=== PATIENT | female | born 1950 | race Two or more races ===

== ENCOUNTER 2018-06-22 05:31 | Inpatient (IN) | payer MEDICARE, MEDICAID ==
[2018-06-22] VITALS (40 sets, daily range): BP systolic 120–198; BP diastolic 57–132
[~2018-06-22] VITALS: Ht 162.6 cm; Wt 67.7 kg
[2018-06-22 08:03] LABS: Basophils # (auto) 0 uL; Basophils % (auto) 0.4 % (0.0-2.0); Eosinophils # (auto) 0.2 uL; Eosinophils % (auto) 1.6 % (0.0-7.0); Hematocrit 24.4 % (36.0-46.0); Lymphocytes # (auto) 1.3 uL; Lymphocytes % (auto) 12.2 % (10.0-50.0); Mean Corpuscular Hemoglobin 28.3 pg (28.0-32.0); Mean Corpuscular Hgb Conc. 32.7 g/dL (32.0-36.0); Mean Corpuscular Volume 86.7 fL (80.0-100.0); Monocytes # (auto) 0.6 uL; Monocytes % (auto) 5.9 % (0.0-12.0); Neutrophils # (auto) 8.2 uL; Neutrophils % (auto) 79.9 % (37.0-80.0); Nucleated Red Blood Cells % 0.1 %; Platelet Count (auto) 196 10^3/uL (140-450); Red Blood Cells 2.82 10^6/uL (4.0-5.20); Red Cell Distribution Width 19.6 % (11.8-14.3); White Blood Cell 10.2 10^3/uL (4.4-10.8)
[2018-06-22 08:22] LABS: Albumin 3.2 g/dL (3.4-5.0); BUN/Creatinine Ratio 8.6; Calcium 7.4 mg/dL (8.5-10.1); Magnesium 2.9 mg/dL (1.6-2.6)
[2018-06-22 08:23] LABS: INR 0.92 (0.9-1.15); Partial Thromboplastin Time 21.5 sec (23.78-33.04); Prothrombin Time 9.9 sec (9.27-12.13)
[2018-06-22 08:27] LABS: Bilirubin, Total 0.3 mg/dL (0.2-1.0); Total Protein 6.9 g/dL (6.4-8.2)
[2018-06-22 08:32] LABS: Potassium 7.2 mmol/L (3.5-5.1)
[2018-06-22] MEDS ORDERED: ALBUTEROL SULF 2.5 MG/0.5ML(0.5%) NEB SOLN NEB STA (08:35)
[2018-06-22] MEDS ORDERED: TEMAZEPAM 15 MG CAP PO PRN (08:45)
[2018-06-22] MEDS ORDERED: DEXTROSE (50%) 50ML SYRG IV ONE (08:45)
[2018-06-22] MEDS ORDERED: InsuLIN REG 1unit/0.01ml Soln (100units/ml) IV ONE (08:45)
[2018-06-22] MEDS ORDERED: SODIUM BICARBONATE 8.4% INJ 50ML SYRINGE IV ONE (08:45)
[2018-06-22] MEDS ORDERED: SODIUM POLYSTYRENE SULF 15 GM POWDER PR ONE (08:45)
[2018-06-22] MEDS ORDERED: CALCIUM GLUC 4.65meq/50ml D5AE 50 ML IV ONE (08:45)
[2018-06-22] MEDS ORDERED: LORazepam 0.5 MG TAB PO PRN (08:45)
[2018-06-22] MEDS ORDERED: PROMETHAZINE HCL 25 MG/ML 1ML IV PRN (08:45)
[2018-06-22] MEDS ORDERED: NITROGLYCERIN 0.4 MG SL TAB SL PRN (08:45)
[2018-06-22] MEDS ORDERED: HYDROcodone-ACET 5/325MG TAB PO PRN (08:45)
[2018-06-22] MEDS ORDERED: LACTULOSE 20Gm/30ML SOLN PO PRN (08:45)
[2018-06-22] MEDS ORDERED: MORPHINE SULFATE 4 MG/ML SYR/VIAL IV PRN ×2 (08:45)
[2018-06-22] MEDS: FUROSEMIDE 40 MG/4 ML VIAL IV SCH ×2 (09:00→18:00)
[2018-06-22] MEDS ORDERED: FUROSEMIDE 20 MG/2 ML VIAL IV ONE (09:00)
[2018-06-22] MEDS ORDERED: SODIUM CHL 0.9% 1000 ML BAG XX ONE (09:15)
[2018-06-22] MEDS ORDERED: EPOETIN ALFA 10,000 UNIT/1 ML VIAL IV ONE (09:15)
[2018-06-22] MEDS: PANTOPRAZOLE 40 MG TAB PO SCH (09:42)
[2018-06-22] MEDS ORDERED: ENOXAPARIN SOD 30 MG/0.3 ML SYRINGE SC SCH (10:00)
[2018-06-22] MEDS ORDERED: LORazepam 2MG/ML-1ML VIAL ONE (10:18)
[2018-06-22] MEDS ORDERED: LORazepam 2MG/ML-1ML VIAL IV ONE (10:30)
[2018-06-22] MEDS ORDERED: MIDAZOLAM DRIP 50 mg/50mL 50 ML IV ONE (10:41)
[2018-06-22] MEDS ORDERED: SUCCINYLCHOLINE CHLORIDE 20 MG/ML 10ML VIAL IV ONE (10:45)
[2018-06-22] MEDS ORDERED: ETOMIDATE (2MG/ML) 20ML VIAL IV ONE (10:45)
[2018-06-22] MEDS: MIDAZOLAM DRIP 50 mg/50mL 50 ML IV SCH ×4 (10:59→20:22)
[2018-06-22] MEDS ORDERED: PROPOFOL 100 ML IV ONE (11:13)
[2018-06-22] MEDS: PROPOFOL 100 ML IV SCH ×2 (11:37→15:07)
[2018-06-22] MEDS: LABETALOL HCL 5 MG/ML 4ML SYRINGE IV PRN ×3 (18:52→23:18)
[2018-06-22 19:53] LABS: Calcium 7.5 mg/dL (8.5-10.1); Potassium 3.8 mmol/L (3.5-5.1)
[2018-06-23] VITALS (105 sets, daily range): BP systolic 130–201; BP diastolic 57–99
[2018-06-23] MEDS: PROPOFOL 100 ML IV SCH ×4 (00:15→22:48)
[2018-06-23] MEDS: MIDAZOLAM DRIP 50 mg/50mL 50 ML IV SCH ×2 (00:16→22:47)
[2018-06-23] MEDS: LABETALOL HCL 5 MG/ML 4ML SYRINGE IV PRN ×4 (01:23→18:51)
[2018-06-23 03:51] LABS: Basophils # (auto) 0 uL; Hematocrit 22.7 % (36.0-46.0); Hemoglobin 7.5 g/dL (12.2-16.2); Lymphocytes # (auto) 0.8 uL; Mean Corpuscular Volume 85.8 fL (80.0-100.0); Monocytes # (auto) 0.5 uL
[2018-06-23 03:54] LABS: Basophils % (auto) 0.4 % (0.0-2.0); Eosinophils # (auto) 0 uL; Eosinophils % (auto) 0.6 % (0.0-7.0); Mean Corpuscular Hemoglobin 28.2 pg (28.0-32.0); Mean Corpuscular Hgb Conc. 32.9 g/dL (32.0-36.0); Monocytes % (auto) 7.2 % (0.0-12.0); Neutrophils # (auto) 5.9 uL; Neutrophils % (auto) 80.8 % (37.0-80.0); Platelet Count (auto) 178 10^3/uL (140-450); Red Blood Cells 2.65 10^6/uL (4.0-5.20); White Blood Cell 7.3 10^3/uL (4.4-10.8)
[2018-06-23 04:05] LABS: Red Cell Distribution Width 20.2 % (11.8-14.3)
[2018-06-23 04:10] LABS: Albumin 2.9 g/dL (3.4-5.0); Calcium 7.4 mg/dL (8.5-10.1); Potassium 4.3 mmol/L (3.5-5.1)
[2018-06-23 04:16] LABS: BUN/Creatinine Ratio 6.3; Bilirubin, Total 0.5 mg/dL (0.2-1.0); Phosphorus 5.3 mg/dL (2.5-4.90); Total Protein 6.3 g/dL (6.4-8.2)
[2018-06-23] MEDS: FUROSEMIDE 40 MG/4 ML VIAL IV SCH (06:25)
[2018-06-23] MEDS: PANTOPRAZOLE 40 MG TAB PO SCH (09:19)
[2018-06-23] MEDS: HEPARIN SODIUM (PORCINE) 5000 UNITS/ML 1ML VIAL SC SCH ×2 (09:20→19:45)
[2018-06-23] MEDS ORDERED: ENALAPRIL MALEATE 2.5 MG TAB PO SCH (10:00)
[2018-06-23] MEDS: hydrALAZINE HCL 10 MG TAB PO PRN ×2 (10:55→16:37)
[2018-06-23] MEDS ORDERED: AZITHROMYCIN 500MG/ 250ML 250 ML IV ONE (11:45)
[2018-06-23] MEDS ORDERED: cefTRIAXone 1GM/50ML D5W 50 ML IV ONE (11:45)
[2018-06-23] MEDS: ACETAMINOPHEN 500 MG TAB PO PRN (20:29)
[2018-06-23] MEDS: ENALAPRIL MALEATE 10 MG TAB PO SCH (22:11)
[2018-06-24] VITALS (105 sets, daily range): BP systolic 103–190; BP diastolic 43–143
[2018-06-24] MEDS: hydrALAZINE HCL 10 MG TAB PO PRN (00:56)
[2018-06-24] MEDS: LABETALOL HCL 5 MG/ML 4ML SYRINGE IV PRN ×2 (02:03→03:53)
[2018-06-24 04:34] LABS: Basophils # (auto) 0 uL; Eosinophils # (auto) 0 uL; Eosinophils % (auto) 0.4 % (0.0-7.0); Lymphocytes # (auto) 0.6 uL; Monocytes # (auto) 0.8 uL
[2018-06-24 04:37] LABS: Basophils % (auto) 0.4 % (0.0-2.0); Hematocrit 23.5 % (36.0-46.0); Hemoglobin 8.1 g/dL (12.2-16.2); Lymphocytes % (auto) 6.1 % (10.0-50.0); Mean Corpuscular Hemoglobin 29.4 pg (28.0-32.0); Mean Corpuscular Hgb Conc. 34.2 g/dL (32.0-36.0); Mean Corpuscular Volume 85.8 fL (80.0-100.0); Monocytes % (auto) 8.4 % (0.0-12.0); Neutrophils # (auto) 8.5 uL; Neutrophils % (auto) 84.7 % (37.0-80.0); Platelet Count (auto) 186 10^3/uL (140-450); Red Blood Cells 2.74 10^6/uL (4.0-5.20); Red Cell Distribution Width 20.7 % (11.8-14.3)
[2018-06-24 04:53] LABS: Potassium 3.6 mmol/L (3.5-5.1)
[2018-06-24 05:03] LABS: BUN/Creatinine Ratio 6.4; Calcium 7.2 mg/dL (8.5-10.1)
[2018-06-24] MEDS: HEPARIN SODIUM (PORCINE) 5000 UNITS/ML 1ML VIAL SC SCH ×2 (07:45→19:45)
[2018-06-24] MEDS: PROPOFOL 100 ML IV SCH ×2 (09:45→17:20)
[2018-06-24] MEDS: cefTRIAXone 1GM/50ML D5W 50 ML IV SCH (09:50)
[2018-06-24] MEDS: ENALAPRIL MALEATE 10 MG TAB PO SCH ×2 (10:06→22:00)
[2018-06-24] MEDS: PANTOPRAZOLE 40 MG/10 ML VIAL IV SCH (10:06)
[2018-06-24] MEDS: AZITHROMYCIN 500MG/ 250ML 250 ML IV SCH (10:30)
[2018-06-24] MEDS: hydrALAZINE HCL 10 MG TAB PO SCH ×2 (13:08→17:41)
[2018-06-24] MEDS: MIDAZOLAM DRIP 50 mg/50mL 50 ML IV SCH (17:00)
[2018-06-25] VITALS (102 sets, daily range): BP systolic 102–171; BP diastolic 41–139
[2018-06-25] MEDS: LABETALOL HCL 5 MG/ML 4ML SYRINGE IV PRN ×2 (02:56→05:22)
[2018-06-25 04:02] LABS: Basophils # (auto) 0 uL; Basophils % (auto) 0.4 % (0.0-2.0); Eosinophils # (auto) 0.1 uL; Eosinophils % (auto) 1.6 % (0.0-7.0); Hematocrit 20.7 % (36.0-46.0); Hemoglobin 7.1 g/dL (12.2-16.2); Lymphocytes # (auto) 0.7 uL; Lymphocytes % (auto) 8.9 % (10.0-50.0); Mean Corpuscular Hemoglobin 29.4 pg (28.0-32.0); Mean Corpuscular Hgb Conc. 34.4 g/dL (32.0-36.0); Mean Corpuscular Volume 85.4 fL (80.0-100.0); Monocytes # (auto) 0.5 uL; Monocytes % (auto) 6.3 % (0.0-12.0); Neutrophils # (auto) 6.7 uL; Neutrophils % (auto) 82.8 % (37.0-80.0); Platelet Count (auto) 162 10^3/uL (140-450); Red Blood Cells 2.43 10^6/uL (4.0-5.20); White Blood Cell 8.1 10^3/uL (4.4-10.8)
[2018-06-25 04:05] LABS: Red Cell Distribution Width 20.4 % (11.8-14.3)
[2018-06-25 04:23] LABS: Calcium 6.6 mg/dL (8.5-10.1)
[2018-06-25 04:25] LABS: BUN/Creatinine Ratio 6.5
[2018-06-25] MEDS: hydrALAZINE HCL 10 MG TAB PO SCH ×4 (05:40→17:31)
[2018-06-25] MEDS: HEPARIN SODIUM (PORCINE) 5000 UNITS/ML 1ML VIAL SC SCH ×2 (07:45→19:45)
[2018-06-25] MEDS ORDERED: EPOETIN ALFA 10,000 UNIT/1 ML VIAL IV ONE (07:45)
[2018-06-25] MEDS ORDERED: SODIUM CHL 0.9% 1000 ML BAG XX ONE (07:45)
[2018-06-25] MEDS: cefTRIAXone 1GM/50ML D5W 50 ML IV SCH (08:39)
[2018-06-25] MEDS: PROPOFOL 100 ML IV SCH (12:20)
[2018-06-25] MEDS ORDERED: HYDROcodone-ACET 5/325MG TAB PO PRN (14:00)
[2018-06-25] MEDS ORDERED: MORPHINE SULFATE 4 MG/ML SYR/VIAL IV PRN (14:00)
[2018-06-25] MEDS: PANTOPRAZOLE 40 MG/10 ML VIAL IV SCH (14:09)
[2018-06-25] MEDS: AZITHROMYCIN 500MG/ 250ML 250 ML IV SCH (14:10)
[2018-06-25] MEDS: DEXMEDETOMIDINE HCL 400 MCG in D5W 5% 96 ML IV SCH (14:53)
[2018-06-25] MEDS: ENALAPRIL MALEATE 10 MG TAB PO SCH (22:09)
[2018-06-26] VITALS (86 sets, daily range): BP systolic 116–180; BP diastolic 47–74
[2018-06-26] MEDS: DEXMEDETOMIDINE HCL 400 MCG in D5W 5% 96 ML IV SCH (03:55)
[2018-06-26 04:07] LABS: Basophils # (auto) 0 uL; Eosinophils # (auto) 0.1 uL; Neutrophils # (auto) 6.7 uL; White Blood Cell 8.4 10^3/uL (4.4-10.8)
[2018-06-26 04:10] LABS: Basophils % (auto) 0.3 % (0.0-2.0); Eosinophils % (auto) 0.9 % (0.0-7.0); Lymphocytes # (auto) 0.9 uL; Lymphocytes % (auto) 11.2 % (10.0-50.0); Mean Corpuscular Hemoglobin 28.4 pg (28.0-32.0); Mean Corpuscular Hgb Conc. 33.3 g/dL (32.0-36.0); Mean Corpuscular Volume 85.2 fL (80.0-100.0); Monocytes # (auto) 0.7 uL; Monocytes % (auto) 7.9 % (0.0-12.0); Neutrophils % (auto) 79.7 % (37.0-80.0); Platelet Count (auto) 166 10^3/uL (140-450); Red Blood Cells 2.47 10^6/uL (4.0-5.20); Red Cell Distribution Width 19.7 % (11.8-14.3)
[2018-06-26 05:06] LABS: BUN/Creatinine Ratio 6.1; Calcium 7.4 mg/dL (8.5-10.1); Potassium 4.6 mmol/L (3.5-5.1)
[2018-06-26] MEDS: hydrALAZINE HCL 10 MG TAB PO SCH ×4 (05:45→18:26)
[2018-06-26] MEDS: HEPARIN SODIUM (PORCINE) 5000 UNITS/ML 1ML VIAL SC SCH ×2 (07:45→19:45)
[2018-06-26] MEDS: cefTRIAXone 1GM/50ML D5W 50 ML IV SCH (09:22)
[2018-06-26] MEDS: PANTOPRAZOLE 40 MG/10 ML VIAL IV SCH (10:14)
[2018-06-26] MEDS: ENALAPRIL MALEATE 10 MG TAB PO SCH ×2 (10:15→22:00)
[2018-06-26] MEDS: MIDAZOLAM DRIP 50 mg/50mL 50 ML IV SCH (10:15)
[2018-06-26] MEDS: AZITHROMYCIN 500MG/ 250ML 250 ML IV SCH (10:15)
[2018-06-26 13:35] LABS: % Iron Saturation 25.3 % (15-50)
[2018-06-26] MEDS: LABETALOL HCL 5 MG/ML 4ML SYRINGE IV PRN (16:31)
[2018-06-26] MEDS: MORPHINE SULFATE 4 MG/ML SYR/VIAL IV PRN (19:49)
[2018-06-26] MEDS ORDERED: AML5T PO (21:46)
[2018-06-26] MEDS ORDERED: GLIP1TAB38 PO (21:47)
[2018-06-26] MEDS ORDERED: HYDR-4298 PO (21:51)
[2018-06-26] MEDS ORDERED: METO-159 PO (21:54)
[2018-06-26] MEDS ORDERED: INSUINJ48 SC ×2 (22:09→22:20)
[2018-06-26] MEDS ORDERED: SEVE800T8 PO (22:22)
[2018-06-26] MEDS ORDERED: ALBUAER3 IN (22:25)
[2018-06-26] MEDS ORDERED: CHOL20007 OR (22:28)
[2018-06-27] VITALS (52 sets, daily range): BP systolic 118–205; BP diastolic 47–87
[2018-06-27] MEDS: hydrALAZINE HCL 10 MG TAB PO SCH ×5 (00:30→23:58)
[2018-06-27 04:06] LABS: Basophils # (auto) 0 uL; Basophils % (auto) 0.4 % (0.0-2.0)
[2018-06-27 04:08] LABS: Eosinophils # (auto) 0.2 uL; Eosinophils % (auto) 2.7 % (0.0-7.0); Hematocrit 21.7 % (36.0-46.0); Hemoglobin 7.2 g/dL (12.2-16.2); Lymphocytes % (auto) 11.2 % (10.0-50.0); Mean Corpuscular Hemoglobin 28.3 pg (28.0-32.0); Mean Corpuscular Hgb Conc. 33.1 g/dL (32.0-36.0); Mean Corpuscular Volume 85.5 fL (80.0-100.0); Monocytes # (auto) 0.8 uL; Monocytes % (auto) 8.6 % (0.0-12.0); Neutrophils # (auto) 6.8 uL; Neutrophils % (auto) 77.1 % (37.0-80.0); Nucleated Red Blood Cells % 0.1 %; Platelet Count (auto) 214 10^3/uL (140-450); Red Blood Cells 2.54 10^6/uL (4.0-5.20); Red Cell Distribution Width 19.6 % (11.8-14.3); White Blood Cell 8.8 10^3/uL (4.4-10.8)
[2018-06-27 04:30] LABS: BUN/Creatinine Ratio 6.4; Calcium 7.6 mg/dL (8.5-10.1); Potassium 4.6 mmol/L (3.5-5.1)
[2018-06-27] MEDS: HEPARIN SODIUM (PORCINE) 5000 UNITS/ML 1ML VIAL SC SCH ×2 (07:45→19:45)
[2018-06-27] MEDS: MIDAZOLAM DRIP 50 mg/50mL 50 ML IV SCH (10:33)
[2018-06-27] MEDS: PROPOFOL 100 ML IV SCH (11:17)
[2018-06-27] MEDS ORDERED: EPOETIN ALFA 10,000 UNIT/1 ML VIAL IV ONE (11:45)
[2018-06-27] MEDS ORDERED: SODIUM CHL 0.9% 1000 ML BAG XX ONE (11:45)
[2018-06-27] MEDS: cefTRIAXone 1GM/50ML D5W 50 ML IV SCH (12:29)
[2018-06-27] MEDS: ENALAPRIL MALEATE 10 MG TAB PO SCH ×2 (12:30→21:41)
[2018-06-27] MEDS: PANTOPRAZOLE 40 MG/10 ML VIAL IV SCH (12:30)
[2018-06-27] MEDS: AZITHROMYCIN 500MG/ 250ML 250 ML IV SCH (12:32)
[2018-06-27] MEDS: DEXMEDETOMIDINE HCL 400 MCG in D5W 5% 96 ML IV SCH (13:02)
[2018-06-27] MEDS: LABETALOL HCL 5 MG/ML 4ML SYRINGE IV PRN ×2 (13:33→15:53)
[2018-06-27] MEDS: ACETAMINOPHEN 500 MG TAB PO PRN (20:32)
[2018-06-27] MEDS: MORPHINE SULFATE 4 MG/ML SYR/VIAL IV PRN (20:33)
[2018-06-28] VITALS (97 sets, daily range): BP systolic 116–186; BP diastolic 48–100
[2018-06-28] MEDS: DEXMEDETOMIDINE HCL 400 MCG in D5W 5% 96 ML IV SCH (00:31)
[2018-06-28] MEDS: hydrALAZINE HCL 10 MG TAB PO SCH ×4 (06:49→23:48)
[2018-06-28] MEDS: LABETALOL HCL 5 MG/ML 4ML SYRINGE IV PRN ×3 (07:56→18:36)
[2018-06-28] MEDS: cefTRIAXone 1GM/50ML D5W 50 ML IV SCH (08:55)
[2018-06-28] MEDS: ENALAPRIL MALEATE 10 MG TAB PO SCH ×2 (09:35→22:16)
[2018-06-28] MEDS: PANTOPRAZOLE 40 MG/10 ML VIAL IV SCH (09:35)
[2018-06-28] MEDS: AZITHROMYCIN 500MG/ 250ML 250 ML IV SCH (09:35)
[2018-06-28] MEDS: MIDAZOLAM DRIP 50 mg/50mL 50 ML IV SCH (10:33)
[2018-06-28] MEDS: PROPOFOL 100 ML IV SCH (11:17)
[2018-06-28] MEDS ORDERED: NYSTATIN (MOUTH-THROAT) 500,000 UNITS/5 ML SUSP MT ONE (12:15)
[2018-06-28] MEDS ORDERED: HYDROcodone-ACET 5/325MG TAB PO PRN (12:15)
[2018-06-28] MEDS ORDERED: MORPHINE SULFATE 4 MG/ML SYR/VIAL IV PRN ×2 (12:15)
[2018-06-28] MEDS ORDERED: HALOPERIDOL LACTATE 5 MG/ML INJ VIAL IV PRN (15:30)
[2018-06-28] MEDS: NYSTATIN (MOUTH-THROAT) 500,000 UNITS/5 ML SUSP MT SCH ×2 (17:54→22:17)
[2018-06-28] MEDS ORDERED: HEPARIN SODIUM (PORCINE) 5000 UNITS/ML 1ML VIAL SC SCH (19:45)
[2018-06-29] VITALS (82 sets, daily range): BP systolic 104–192; BP diastolic 46–97
[2018-06-29] MEDS: LABETALOL HCL 5 MG/ML 4ML SYRINGE IV PRN (03:39)
[2018-06-29 04:34] LABS: Basophils # (auto) 0.1 uL; Eosinophils # (auto) 0.3 uL; Lymphocytes # (auto) 0.9 uL; Monocytes # (auto) 0.7 uL; Neutrophils # (auto) 5.1 uL; Red Cell Distribution Width 19.6 % (11.8-14.3)
[2018-06-29 04:36] LABS: Basophils % (auto) 0.7 % (0.0-2.0); Eosinophils % (auto) 4.1 % (0.0-7.0); Hematocrit 22.2 % (36.0-46.0); Hemoglobin 7.3 g/dL (12.2-16.2); Lymphocytes % (auto) 12.4 % (10.0-50.0); Mean Corpuscular Hemoglobin 28.4 pg (28.0-32.0); Mean Corpuscular Volume 85.9 fL (80.0-100.0); Monocytes % (auto) 9.6 % (0.0-12.0); Neutrophils % (auto) 73.2 % (37.0-80.0); Platelet Count (auto) 293 10^3/uL (140-450); Red Blood Cells 2.59 10^6/uL (4.0-5.20)
[2018-06-29 04:48] LABS: BUN/Creatinine Ratio 6.7; Calcium 8.5 mg/dL (8.5-10.1); Potassium 4.2 mmol/L (3.5-5.1)
[2018-06-29] MEDS: NYSTATIN (MOUTH-THROAT) 500,000 UNITS/5 ML SUSP MT SCH ×4 (06:11→21:34)
[2018-06-29] MEDS: hydrALAZINE HCL 10 MG TAB PO SCH ×3 (06:52→17:59)
[2018-06-29] MEDS ORDERED: SODIUM CHL 0.9% 1000 ML BAG XX ONE (08:45)
[2018-06-29] MEDS ORDERED: EPOETIN ALFA 10,000 UNIT/1 ML VIAL IV ONE ×2 (08:45→10:00)
[2018-06-29] MEDS: PANTOPRAZOLE 40 MG/10 ML VIAL IV SCH (10:00)
[2018-06-29] MEDS: PROPOFOL 100 ML IV SCH (10:26)
[2018-06-29] MEDS: AZITHROMYCIN 500MG/ 250ML 250 ML IV SCH (12:06)
[2018-06-29] MEDS: cefTRIAXone 1GM/50ML D5W 50 ML IV SCH (12:07)
[2018-06-29] MEDS: ENALAPRIL MALEATE 10 MG TAB PO SCH ×2 (12:08→21:33)
[2018-06-29] MEDS ORDERED: DEXTROSE (50%) 50ML SYRG IV PRN (14:00)
[2018-06-29] MEDS: ACETAMINOPHEN 500 MG TAB PO PRN (16:10)
[2018-06-29] MEDS: InsuLIN REG 1unit/0.01ml Soln (100units/ml) SC SCH ×2 (17:00→21:30)
[2018-06-29] MEDS: ACCU-CHEK COMFORT CURVE STRIP VI SCH ×2 (17:01→21:33)
[2018-06-30] VITALS (88 sets, daily range): BP systolic 108–234; BP diastolic 40–129
[2018-06-30 03:58] LABS: Basophils # (auto) 0.1 uL; Basophils % (auto) 1.1 % (0.0-2.0); Eosinophils # (auto) 0.2 uL; Eosinophils % (auto) 2.4 % (0.0-7.0); Hematocrit 26.3 % (36.0-46.0); Hemoglobin 8.6 g/dL (12.2-16.2); Lymphocytes # (auto) 0.8 uL; Lymphocytes % (auto) 10.9 % (10.0-50.0); Mean Corpuscular Hemoglobin 28.5 pg (28.0-32.0); Mean Corpuscular Hgb Conc. 32.5 g/dL (32.0-36.0); Mean Corpuscular Volume 87.8 fL (80.0-100.0); Monocytes # (auto) 0.9 uL; Monocytes % (auto) 11.5 % (0.0-12.0); Neutrophils # (auto) 5.6 uL; Neutrophils % (auto) 74.1 % (37.0-80.0); Nucleated Red Blood Cells % 0.1 %; Platelet Count (auto) 343 10^3/uL (140-450); Red Cell Distribution Width 19.6 % (11.8-14.3); White Blood Cell 7.5 10^3/uL (4.4-10.8)
[2018-06-30 04:13] LABS: Albumin 2.8 g/dL (3.4-5.0); Calcium 9.3 mg/dL (8.5-10.1); Potassium 4.3 mmol/L (3.5-5.1)
[2018-06-30 04:17] LABS: BUN/Creatinine Ratio 6.7; Bilirubin, Total 0.4 mg/dL (0.2-1.0)
[2018-06-30] MEDS: NYSTATIN (MOUTH-THROAT) 500,000 UNITS/5 ML SUSP MT SCH ×4 (05:40→22:14)
[2018-06-30] MEDS: InsuLIN REG 1unit/0.01ml Soln (100units/ml) SC SCH ×4 (05:40→22:20)
[2018-06-30] MEDS: ACCU-CHEK COMFORT CURVE STRIP VI SCH ×4 (05:40→22:14)
[2018-06-30] MEDS: hydrALAZINE HCL 10 MG TAB PO SCH ×4 (05:44→17:34)
[2018-06-30] MEDS: LABETALOL HCL 5 MG/ML 4ML SYRINGE IV PRN (09:07)
[2018-06-30] MEDS: cefTRIAXone 1GM/50ML D5W 50 ML IV SCH (09:07)
[2018-06-30] MEDS ORDERED: MORPHINE SULFATE 10 MG/ML INJ 1ML SDV IV PRN ×2 (10:00)
[2018-06-30] MEDS: ENALAPRIL MALEATE 10 MG TAB PO SCH ×2 (10:01→21:35)
[2018-06-30] MEDS: AZITHROMYCIN 500MG/ 250ML 250 ML IV SCH (10:01)
[2018-06-30] MEDS: PANTOPRAZOLE 40 MG/10 ML VIAL IV SCH (10:01)
[2018-06-30] MEDS ORDERED: methylPREDNISolone SOD SUCC 125 MG/2 ML VL ONE (10:23)
[2018-06-30] MEDS ORDERED: EPINEPHrine HCL 0.5 ML NEB ONE (10:36)
[2018-06-30] MEDS ORDERED: hydrOXYzine HCL 25 MG/ML VL IM ONE ×2 (10:42→10:45)
[2018-06-30] MEDS ORDERED: TEMAZEPAM 15 MG CAP PO PRN (10:45)
[2018-06-30] MEDS ORDERED: LORazepam 0.5 MG TAB PO PRN (10:45)
[2018-06-30] MEDS ORDERED: DILTIAZEM HCL 25 MG/5 ML VIAL IV ONE ×2 (10:53→11:00)
[2018-06-30] MEDS ORDERED: ETOMIDATE (2MG/ML) 20ML VIAL IV ONE (11:14)
[2018-06-30] MEDS ORDERED: MIDAZOLAM HCL 5 MG/ML-1ML VIAL ONE (11:14)
[2018-06-30] MEDS: PROPOFOL 100 ML IV SCH ×3 (11:17→20:27)
[2018-06-30] MEDS ORDERED: fentaNYL Drip 2500mCg/250mlNS 250 ML IV ONE (11:53)
[2018-06-30] MEDS ORDERED: methylPREDNISolone SOD SUCC 125 MG/2 ML VL IV ONE (12:00)
[2018-06-30] MEDS: fentaNYL Drip 2500mCg/250mlNS 250 ML IV SCH (13:44)
[2018-07-01] VITALS (90 sets, daily range): BP systolic 96–182; BP diastolic 36–70
[2018-07-01] MEDS: hydrALAZINE HCL 10 MG TAB PO SCH ×4 (00:01→18:00)
[2018-07-01] MEDS: PROPOFOL 100 ML IV SCH ×4 (01:15→22:37)
[2018-07-01] MEDS: NYSTATIN (MOUTH-THROAT) 500,000 UNITS/5 ML SUSP MT SCH ×4 (05:37→22:25)
[2018-07-01] MEDS: fentaNYL Drip 2500mCg/250mlNS 250 ML IV SCH (06:46)
[2018-07-01] MEDS: ACCU-CHEK COMFORT CURVE STRIP VI SCH ×4 (07:00→22:00)
[2018-07-01] MEDS: InsuLIN REG 1unit/0.01ml Soln (100units/ml) SC SCH ×4 (07:00→22:00)
[2018-07-01] MEDS: ENALAPRIL MALEATE 10 MG TAB PO SCH ×2 (10:15→15:53)
[2018-07-01] MEDS: cefTRIAXone 1GM/50ML D5W 50 ML IV SCH (10:16)
[2018-07-01] MEDS: PANTOPRAZOLE 40 MG/10 ML VIAL IV SCH (10:21)
[2018-07-01] MEDS: AZITHROMYCIN 500MG/ 250ML 250 ML IV SCH (11:05)
[2018-07-01] MEDS ORDERED: DEXAMETHASONE SOD PHOS 4 MG/1ML SDV INJ IV ONE (11:15)
[2018-07-01] MEDS: Pro-Stat SF 30ml Vanilla GT SCH (18:30)
[2018-07-01] MEDS: Nepro With Carb Steady 1 Liter Bottle GT SCH (18:33)
[2018-07-01] MEDS: DEXAMETHASONE SOD PHOS 4 MG/1ML SDV INJ IV SCH (22:25)
[2018-07-02] VITALS (109 sets, daily range): BP systolic 106–192; BP diastolic 37–72
[2018-07-02] MEDS: hydrALAZINE HCL 10 MG TAB PO SCH ×5 (00:40→23:34)
[2018-07-02] MEDS: fentaNYL Drip 2500mCg/250mlNS 250 ML IV SCH (03:55)
[2018-07-02 05:36] LABS: Basophils # (auto) 0 uL; Basophils % (auto) 0.5 % (0.0-2.0); Eosinophils # (auto) 0 uL; Monocytes # (auto) 0.4 uL; Neutrophils # (auto) 4.4 uL; Red Blood Cells 2.62 10^6/uL (4.0-5.20); White Blood Cell 5.3 10^3/uL (4.4-10.8)
[2018-07-02 05:42] LABS: Eosinophils % (auto) 0.2 % (0.0-7.0); Hematocrit 22.4 % (36.0-46.0); Hemoglobin 7.5 g/dL (12.2-16.2); Lymphocytes # (auto) 0.6 uL; Lymphocytes % (auto) 10.7 % (10.0-50.0); Mean Corpuscular Hemoglobin 28.5 pg (28.0-32.0); Mean Corpuscular Hgb Conc. 33.3 g/dL (32.0-36.0); Mean Corpuscular Volume 85.6 fL (80.0-100.0); Monocytes % (auto) 7.1 % (0.0-12.0); Neutrophils % (auto) 81.5 % (37.0-80.0); Platelet Count (auto) 310 10^3/uL (140-450); Red Cell Distribution Width 18.8 % (11.8-14.3)
[2018-07-02] MEDS: NYSTATIN (MOUTH-THROAT) 500,000 UNITS/5 ML SUSP MT SCH ×4 (06:12→22:35)
[2018-07-02] MEDS: InsuLIN REG 1unit/0.01ml Soln (100units/ml) SC SCH ×4 (06:13→22:40)
[2018-07-02] MEDS: ACCU-CHEK COMFORT CURVE STRIP VI SCH ×4 (06:13→22:35)
[2018-07-02] MEDS: PROPOFOL 100 ML IV SCH (06:18)
[2018-07-02 10:05] LABS: Albumin 2.7 g/dL (3.4-5.0); Calcium 8.2 mg/dL (8.5-10.1)
[2018-07-02 10:06] LABS: Bilirubin, Total 0.3 mg/dL (0.2-1.0); Phosphorus 6.7 mg/dL (2.5-4.90); Total Protein 7.5 g/dL (6.4-8.2)
[2018-07-02] MEDS: PANTOPRAZOLE 40 MG/10 ML VIAL IV SCH (10:37)
[2018-07-02] MEDS: cefTRIAXone 1GM/50ML D5W 50 ML IV SCH (10:38)
[2018-07-02] MEDS: DEXAMETHASONE SOD PHOS 4 MG/1ML SDV INJ IV SCH ×2 (10:38→23:04)
[2018-07-02] MEDS: ENALAPRIL MALEATE 10 MG TAB PO SCH ×2 (10:38→22:35)
[2018-07-02] MEDS: Pro-Stat SF 30ml Vanilla GT SCH ×2 (10:52→18:56)
[2018-07-02] MEDS: AZITHROMYCIN 500MG/ 250ML 250 ML IV SCH (11:23)
[2018-07-03] VITALS (90 sets, daily range): BP systolic 128–197; BP diastolic 46–103
[2018-07-03] MEDS ORDERED: cloNIDine HCL 0.1 MG TAB ONE (01:07)
[2018-07-03] MEDS: cloNIDine HCL 0.1 MG TAB PO PRN (01:13)
[2018-07-03 04:05] LABS: Basophils # (auto) 0 uL; Basophils % (auto) 0.5 % (0.0-2.0); Eosinophils # (auto) 0 uL; Eosinophils % (auto) 0.1 % (0.0-7.0); Hemoglobin 10.2 g/dL (12.2-16.2); Lymphocytes # (auto) 0.6 uL; Lymphocytes % (auto) 6.4 % (10.0-50.0); Mean Corpuscular Hemoglobin 28.4 pg (28.0-32.0); Mean Corpuscular Hgb Conc. 32.8 g/dL (32.0-36.0); Mean Corpuscular Volume 86.3 fL (80.0-100.0); Monocytes # (auto) 0.5 uL; Monocytes % (auto) 6.1 % (0.0-12.0); Neutrophils # (auto) 7.6 uL; Neutrophils % (auto) 86.9 % (37.0-80.0); Platelet Count (auto) 318 10^3/uL (140-450); Red Cell Distribution Width 17.8 % (11.8-14.3); White Blood Cell 8.7 10^3/uL (4.4-10.8)
[2018-07-03 04:32] LABS: Albumin 2.7 g/dL (3.4-5.0); Calcium 8.5 mg/dL (8.5-10.1); Potassium 4.4 mmol/L (3.5-5.1)
[2018-07-03 04:38] LABS: BUN/Creatinine Ratio 10.7; Bilirubin, Total 0.4 mg/dL (0.2-1.0); Total Protein 7.5 g/dL (6.4-8.2)
[2018-07-03] MEDS: ACCU-CHEK COMFORT CURVE STRIP VI SCH ×4 (06:00→22:00)
[2018-07-03] MEDS: hydrALAZINE HCL 10 MG TAB PO SCH ×3 (06:00→17:42)
[2018-07-03] MEDS: NYSTATIN (MOUTH-THROAT) 500,000 UNITS/5 ML SUSP MT SCH ×4 (06:00→22:00)
[2018-07-03] MEDS: InsuLIN REG 1unit/0.01ml Soln (100units/ml) SC SCH ×4 (06:00→22:00)
[2018-07-03] MEDS ORDERED: MIDAZOLAM HCL 5 MG/ML-1ML VIAL IV ONE (09:30)
[2018-07-03] MEDS: DEXAMETHASONE SOD PHOS 4 MG/1ML SDV INJ IV SCH ×2 (09:56→22:40)
[2018-07-03] MEDS: PANTOPRAZOLE 40 MG/10 ML VIAL IV SCH (09:56)
[2018-07-03] MEDS: ENALAPRIL MALEATE 10 MG TAB PO SCH ×2 (09:56→22:40)
[2018-07-03] MEDS: cefTRIAXone 1GM/50ML D5W 50 ML IV SCH (09:56)
[2018-07-03] MEDS: Pro-Stat SF 30ml Vanilla GT SCH ×2 (10:30→18:00)
[2018-07-03] MEDS: AZITHROMYCIN 500MG/ 250ML 250 ML IV SCH (11:15)
[2018-07-03] MEDS ORDERED: HYDROcodone-ACET 5/325MG TAB PO PRN (13:15)
[2018-07-03] MEDS ORDERED: MORPHINE SULFATE 10 MG/ML INJ 1ML SDV IV PRN ×2 (13:15)
[2018-07-04] VITALS (100 sets, daily range): BP systolic 91–196; BP diastolic 39–117
[2018-07-04 03:50] LABS: Basophils # (auto) 0.1 uL; Basophils % (auto) 0.8 % (0.0-2.0); Eosinophils # (auto) 0 uL; Eosinophils % (auto) 0.3 % (0.0-7.0); Hematocrit 30.7 % (36.0-46.0); Lymphocytes # (auto) 0.9 uL; Lymphocytes % (auto) 8.2 % (10.0-50.0); Mean Corpuscular Hemoglobin 28.5 pg (28.0-32.0); Mean Corpuscular Hgb Conc. 32.6 g/dL (32.0-36.0); Mean Corpuscular Volume 87.5 fL (80.0-100.0); Monocytes # (auto) 0.5 uL; Monocytes % (auto) 5.2 % (0.0-12.0); Neutrophils % (auto) 85.5 % (37.0-80.0); Platelet Count (auto) 310 10^3/uL (140-450); Red Blood Cells 3.51 10^6/uL (4.0-5.20); Red Cell Distribution Width 17.6 % (11.8-14.3); White Blood Cell 10.6 10^3/uL (4.4-10.8)
[2018-07-04 04:18] LABS: BUN/Creatinine Ratio 11.5; Calcium 8.7 mg/dL (8.5-10.1)
[2018-07-04] MEDS: NYSTATIN (MOUTH-THROAT) 500,000 UNITS/5 ML SUSP MT SCH ×4 (06:00→21:51)
[2018-07-04] MEDS: hydrALAZINE HCL 10 MG TAB PO SCH ×5 (06:00→23:48)
[2018-07-04] MEDS: InsuLIN REG 1unit/0.01ml Soln (100units/ml) SC SCH ×4 (06:40→22:03)
[2018-07-04] MEDS: ACCU-CHEK COMFORT CURVE STRIP VI SCH ×4 (06:40→22:03)
[2018-07-04] MEDS ORDERED: MORPHINE SULFATE 4 MG/ML SYR/VIAL IV PRN (12:15)
[2018-07-04] MEDS: DEXAMETHASONE SOD PHOS 4 MG/1ML SDV INJ IV SCH ×2 (12:47→21:51)
[2018-07-04] MEDS: ENALAPRIL MALEATE 10 MG TAB PO SCH ×2 (12:48→21:58)
[2018-07-04] MEDS: PANTOPRAZOLE 40 MG/10 ML VIAL IV SCH (12:48)
[2018-07-04] MEDS: cefTRIAXone 1GM/50ML D5W 50 ML IV SCH (13:00)
[2018-07-04] MEDS: Pro-Stat SF 30ml Vanilla GT SCH ×2 (13:07→18:00)
[2018-07-04] MEDS: AZITHROMYCIN 500MG/ 250ML 250 ML IV SCH (13:51)
[2018-07-05] VITALS (81 sets, daily range): BP systolic 96–200; BP diastolic 45–91
[2018-07-05 04:28] LABS: Calcium 9.3 mg/dL (8.5-10.1); Potassium 4.8 mmol/L (3.5-5.1)
[2018-07-05 04:29] LABS: BUN/Creatinine Ratio 11.1
[2018-07-05] MEDS: cloNIDine HCL 0.1 MG TAB PO PRN ×2 (04:39→14:48)
[2018-07-05 04:47] LABS: Basophils # (auto) 0 uL; Basophils % (auto) 0.3 % (0.0-2.0); Eosinophils # (auto) 0 uL; Eosinophils % (auto) 0.1 % (0.0-7.0); Hematocrit 36.7 % (36.0-46.0); Hemoglobin 11.6 g/dL (12.2-16.2); Lymphocytes # (auto) 0.8 uL; Lymphocytes % (auto) 7.9 % (10.0-50.0); Mean Corpuscular Hemoglobin 28.6 pg (28.0-32.0); Mean Corpuscular Hgb Conc. 31.5 g/dL (32.0-36.0); Mean Corpuscular Volume 90.7 fL (80.0-100.0); Monocytes # (auto) 0.7 uL; Monocytes % (auto) 7.1 % (0.0-12.0); Neutrophils # (auto) 8.6 uL; Neutrophils % (auto) 84.6 % (37.0-80.0); Platelet Count (auto) 323 10^3/uL (140-450); Red Blood Cells 4.04 10^6/uL (4.0-5.20); Red Cell Distribution Width 18.2 % (11.8-14.3); White Blood Cell 10.1 10^3/uL (4.4-10.8)
[2018-07-05] MEDS: ACCU-CHEK COMFORT CURVE STRIP VI SCH ×3 (06:03→17:57)
[2018-07-05] MEDS: NYSTATIN (MOUTH-THROAT) 500,000 UNITS/5 ML SUSP MT SCH ×4 (06:05→22:05)
[2018-07-05] MEDS: hydrALAZINE HCL 10 MG TAB PO SCH ×3 (06:06→17:57)
[2018-07-05] MEDS: InsuLIN REG 1unit/0.01ml Soln (100units/ml) SC SCH ×3 (06:14→17:59)
[2018-07-05] MEDS: cefTRIAXone 1GM/50ML D5W 50 ML IV SCH (08:35)
[2018-07-05] MEDS: Pro-Stat SF 30ml Vanilla GT SCH ×2 (08:35→17:58)
[2018-07-05] MEDS: ENALAPRIL MALEATE 10 MG TAB PO SCH ×2 (10:47→22:05)
[2018-07-05] MEDS: DEXAMETHASONE SOD PHOS 4 MG/1ML SDV INJ IV SCH (10:47)
[2018-07-05] MEDS: PANTOPRAZOLE 40 MG/10 ML VIAL IV SCH (10:47)
[2018-07-05] MEDS: AZITHROMYCIN 500MG/ 250ML 250 ML IV SCH (10:47)
[2018-07-05] MEDS ORDERED: DEXTROSE (50%) 50ML SYRG IV PRN (12:30)
[2018-07-05] MEDS: Nepro With Carb Steady 1 Liter Bottle GT SCH (20:00)
[2018-07-05] MEDS: DEXAMETHASONE 4 MG TAB PO SCH (22:05)
[2018-07-05] MEDS: LORazepam 2MG/ML-1ML VIAL IV PRN (23:25)
[2018-07-06] VITALS (106 sets, daily range): BP systolic 75–205; BP diastolic 35–94
[2018-07-06] MEDS: hydrALAZINE HCL 10 MG TAB PO SCH ×5 (00:08→23:53)
[2018-07-06] MEDS: ACCU-CHEK COMFORT CURVE STRIP VI SCH ×5 (00:08→23:53)
[2018-07-06] MEDS: InsuLIN REG 1unit/0.01ml Soln (100units/ml) SC SCH ×4 (00:13→17:46)
[2018-07-06 04:25] LABS: Anion Gap 22 (5-15); BUN/Creatinine Ratio 12.9; Calcium 8.8 mg/dL (8.5-10.1); Carbon Dioxide 22 mmol/L (21-32); Chloride 91 mmol/L (98-107); GFR African American 5 mL/min; GFR Non-African American 4 mL/min; Glucose 327 mg/dL (74-106); Potassium 5.3 mmol/L (3.5-5.1); Sodium 135 mmol/L (136-145)
[2018-07-06 04:26] LABS: Blood Urea Nitrogen 134 mg/dL (7-18)
[2018-07-06] MEDS: LORazepam 2MG/ML-1ML VIAL IV PRN (04:26)
[2018-07-06 05:24] LABS: Basophils # (auto) 0 uL; Basophils % (auto) 0.5 % (0.0-2.0); Eosinophils # (auto) 0.1 uL; Eosinophils % (auto) 0.9 % (0.0-7.0); Hematocrit 32.6 % (36.0-46.0); Hemoglobin 10.6 g/dL (12.2-16.2); Lymphocytes # (auto) 0.6 uL; Lymphocytes % (auto) 6.7 % (10.0-50.0); Mean Corpuscular Hemoglobin 28.4 pg (28.0-32.0); Mean Corpuscular Hgb Conc. 32.4 g/dL (32.0-36.0); Mean Corpuscular Volume 87.6 fL (80.0-100.0); Monocytes # (auto) 0.5 uL; Monocytes % (auto) 5.3 % (0.0-12.0); Neutrophils # (auto) 7.8 uL; Neutrophils % (auto) 86.6 % (37.0-80.0); Platelet Count (auto) 278 10^3/uL (140-450); Red Blood Cells 3.72 10^6/uL (4.0-5.20); Red Cell Distribution Width 17.5 % (11.8-14.3)
[2018-07-06] MEDS: NYSTATIN (MOUTH-THROAT) 500,000 UNITS/5 ML SUSP MT SCH ×4 (06:05→22:09)
[2018-07-06] MEDS: Pro-Stat SF 30ml Vanilla GT SCH ×2 (08:00→17:59)
[2018-07-06] MEDS: cefTRIAXone 1GM/50ML D5W 50 ML IV SCH (10:14)
[2018-07-06] MEDS: DEXAMETHASONE 4 MG TAB PO SCH ×2 (10:15→22:09)
[2018-07-06] MEDS: AZITHROMYCIN 500MG/ 250ML 250 ML IV SCH (10:15)
[2018-07-06] MEDS: PANTOPRAZOLE 40 MG/10 ML VIAL IV SCH (10:15)
[2018-07-06] MEDS: ENALAPRIL MALEATE 10 MG TAB PO SCH ×2 (10:16→22:08)
[2018-07-06] MEDS: CALCIUM ACETATE 667 MG CAP NG SCH ×2 (14:00→22:09)
[2018-07-06] MEDS: cloNIDine HCL 0.1 MG TAB PO PRN (14:58)
[2018-07-07] VITALS (84 sets, daily range): BP systolic 114–204; BP diastolic 48–108
[2018-07-07 04:02] LABS: Basophils # (auto) 0 uL; Basophils % (auto) 0.5 % (0.0-2.0); Eosinophils # (auto) 0.1 uL; Eosinophils % (auto) 1.2 % (0.0-7.0); Hematocrit 32.7 % (36.0-46.0); Hemoglobin 10.6 g/dL (12.2-16.2); Lymphocytes # (auto) 0.7 uL; Lymphocytes % (auto) 9.1 % (10.0-50.0); Mean Corpuscular Hemoglobin 27.9 pg (28.0-32.0); Mean Corpuscular Hgb Conc. 32.5 g/dL (32.0-36.0); Mean Corpuscular Volume 85.9 fL (80.0-100.0); Monocytes # (auto) 0.5 uL; Monocytes % (auto) 5.7 % (0.0-12.0); Neutrophils # (auto) 6.7 uL; Neutrophils % (auto) 83.5 % (37.0-80.0); Platelet Count (auto) 279 10^3/uL (140-450); Red Blood Cells 3.81 10^6/uL (4.0-5.20); Red Cell Distribution Width 17.4 % (11.8-14.3); White Blood Cell 8.1 10^3/uL (4.4-10.8)
[2018-07-07 04:28] LABS: Calcium 9.2 mg/dL (8.5-10.1); Magnesium 3.1 mg/dL (1.6-2.6); Potassium 4.8 mmol/L (3.5-5.1)
[2018-07-07 04:30] LABS: BUN/Creatinine Ratio 11.8; Phosphorus 7.4 mg/dL (2.5-4.90)
[2018-07-07] MEDS: ACCU-CHEK COMFORT CURVE STRIP VI SCH ×4 (06:03→23:56)
[2018-07-07] MEDS: hydrALAZINE HCL 10 MG TAB PO SCH ×4 (06:03→23:56)
[2018-07-07] MEDS: CALCIUM ACETATE 667 MG CAP NG SCH ×3 (06:03→22:09)
[2018-07-07] MEDS: NYSTATIN (MOUTH-THROAT) 500,000 UNITS/5 ML SUSP MT SCH ×4 (06:03→22:09)
[2018-07-07] MEDS: InsuLIN REG 1unit/0.01ml Soln (100units/ml) SC SCH ×4 (06:04→17:49)
[2018-07-07] MEDS: Pro-Stat SF 30ml Vanilla GT SCH ×2 (08:00→16:56)
[2018-07-07] MEDS: DEXAMETHASONE 4 MG TAB PO SCH ×2 (08:56→22:09)
[2018-07-07] MEDS: cefTRIAXone 1GM/50ML D5W 50 ML IV SCH (08:56)
[2018-07-07] MEDS: PANTOPRAZOLE 40 MG/10 ML VIAL IV SCH (08:56)
[2018-07-07] MEDS: ENALAPRIL MALEATE 10 MG TAB PO SCH ×2 (09:16→22:09)
[2018-07-07] MEDS: AZITHROMYCIN 500MG/ 250ML 250 ML IV SCH (09:49)
[2018-07-07] MEDS ORDERED: SODIUM CHL 0.9% 1000 ML BAG XX ONE (11:30)
[2018-07-07] MEDS ORDERED: EPOETIN ALFA 10,000 UNIT/1 ML VIAL IV ONE (11:30)
[2018-07-07] MEDS: LORazepam 2MG/ML-1ML VIAL IV PRN (12:03)
[2018-07-07] MEDS: MORPHINE SULFATE 4 MG/ML SYR/VIAL IV PRN ×2 (13:37→18:31)
[2018-07-07] MEDS: cloNIDine HCL 0.1 MG TAB PO PRN (15:45)
[2018-07-07] MEDS: MIDAZOLAM HCL 1MG/1ML-2 ML VIAL IV PRN (20:06)
[2018-07-08] VITALS (102 sets, daily range): BP systolic 76–199; BP diastolic 42–101
[2018-07-08] MEDS: InsuLIN REG 1unit/0.01ml Soln (100units/ml) SC SCH ×4 (00:01→17:12)
[2018-07-08 03:43] LABS: Basophils # (auto) 0 uL; Basophils % (auto) 0.5 % (0.0-2.0); Eosinophils # (auto) 0.2 uL; Hemoglobin 10.6 g/dL (12.2-16.2); Lymphocytes # (auto) 0.7 uL; Mean Corpuscular Hemoglobin 27.8 pg (28.0-32.0); Mean Corpuscular Volume 86.7 fL (80.0-100.0); Monocytes # (auto) 0.6 uL; Monocytes % (auto) 5.9 % (0.0-12.0); Neutrophils # (auto) 8.4 uL; Neutrophils % (auto) 84.6 % (37.0-80.0); Platelet Count (auto) 278 10^3/uL (140-450); Red Blood Cells 3.81 10^6/uL (4.0-5.20); Red Cell Distribution Width 16.7 % (11.8-14.3)
[2018-07-08 03:59] LABS: BUN/Creatinine Ratio 11.9; Calcium 9.4 mg/dL (8.5-10.1); Potassium 4.5 mmol/L (3.5-5.1)
[2018-07-08] MEDS: hydrALAZINE HCL 10 MG TAB PO SCH ×3 (06:00→17:08)
[2018-07-08] MEDS: ACCU-CHEK COMFORT CURVE STRIP VI SCH ×4 (06:00→23:56)
[2018-07-08] MEDS: NYSTATIN (MOUTH-THROAT) 500,000 UNITS/5 ML SUSP MT SCH ×4 (06:00→22:22)
[2018-07-08] MEDS: CALCIUM ACETATE 667 MG CAP NG SCH ×3 (06:00→22:22)
[2018-07-08] MEDS: Pro-Stat SF 30ml Vanilla GT SCH ×2 (08:00→17:09)
[2018-07-08] MEDS: ENALAPRIL MALEATE 10 MG TAB PO SCH ×2 (10:00→22:21)
[2018-07-08] MEDS ORDERED: EPOETIN ALFA 4,000 UNIT/ML VL IV ONE (11:30)
[2018-07-08] MEDS ORDERED: MORPHINE SULFATE 4 MG/ML SYR/VIAL IV PRN (11:30)
[2018-07-08] MEDS ORDERED: HYDROcodone-ACET 5/325MG TAB PO PRN (11:30)
[2018-07-08] MEDS: cefTRIAXone 1GM/50ML D5W 50 ML IV SCH (11:57)
[2018-07-08] MEDS: PANTOPRAZOLE 40 MG/10 ML VIAL IV SCH (11:57)
[2018-07-08] MEDS: AZITHROMYCIN 500MG/ 250ML 250 ML IV SCH (11:57)
[2018-07-08] MEDS: DEXAMETHASONE 4 MG TAB PO SCH ×2 (11:57→22:22)
[2018-07-08] MEDS: MIDAZOLAM HCL 1MG/1ML-2 ML VIAL IV PRN (17:09)
[2018-07-08] MEDS: LORazepam 2MG/ML-1ML VIAL IV PRN (22:31)
[2018-07-09] VITALS (73 sets, daily range): BP systolic 107–192; BP diastolic 49–121
[2018-07-09] MEDS: InsuLIN REG 1unit/0.01ml Soln (100units/ml) SC SCH ×4 (00:05→18:28)
[2018-07-09 04:19] LABS: BUN/Creatinine Ratio 10.6; Calcium 9.2 mg/dL (8.5-10.1); Potassium 4.2 mmol/L (3.5-5.1)
[2018-07-09] MEDS: ACCU-CHEK COMFORT CURVE STRIP VI SCH ×3 (05:22→17:42)
[2018-07-09] MEDS: hydrALAZINE HCL 10 MG TAB PO SCH ×4 (05:36→22:36)
[2018-07-09] MEDS: CALCIUM ACETATE 667 MG CAP NG SCH ×3 (05:36→21:59)
[2018-07-09] MEDS: NYSTATIN (MOUTH-THROAT) 500,000 UNITS/5 ML SUSP MT SCH ×4 (05:36→21:59)
[2018-07-09] MEDS: Pro-Stat SF 30ml Vanilla GT SCH ×2 (08:00→17:24)
[2018-07-09] MEDS: cefTRIAXone 1GM/50ML D5W 50 ML IV SCH (10:00)
[2018-07-09] MEDS: ENALAPRIL MALEATE 10 MG TAB PO SCH (10:01)
[2018-07-09] MEDS: PANTOPRAZOLE 40 MG/10 ML VIAL IV SCH (10:01)
[2018-07-09] MEDS: DEXAMETHASONE 4 MG TAB PO SCH (10:01)
[2018-07-09] MEDS: AZITHROMYCIN 500MG/ 250ML 250 ML IV SCH (11:18)
[2018-07-09] MEDS: SEVELAMER 800 MG TAB PO SCH ×2 (12:00→17:36)
[2018-07-09] MEDS ORDERED: hydrALAZINE HCL 20 MG/ML VL IV PRN (13:45)
[2018-07-09] MEDS ORDERED: ALBUTEROL SULF 2.5 MG/0.5ML(0.5%) NEB SOLN NEB PRN (14:15)
[2018-07-09] MEDS ORDERED: IPRATROPIUM BROM 0.5 MG/2.5ML INH SOL NEB PRN (14:15)
[2018-07-09] MEDS ORDERED: IPRATROPIUM BROM 0.5 MG/2.5ML INH SOL ONE (14:18)
[2018-07-09] MEDS ORDERED: ALBUTEROL SULF 2.5 MG/0.5ML(0.5%) NEB SOLN ONE (14:18)
[2018-07-09] MEDS: amLODIPine BESYLATE 5 MG TAB PO SCH (17:45)
[2018-07-09] MEDS: cloNIDine HCL 0.1 MG TAB PO PRN (20:41)
[2018-07-09] MEDS: LORazepam 2MG/ML-1ML VIAL IV PRN (21:04)
[2018-07-09] MEDS: DEXAMETHASONE SOD PHOS 4 MG/1ML SDV INJ IV SCH (21:58)
[2018-07-10] VITALS (57 sets, daily range): BP systolic 87–202; BP diastolic 42–131
[2018-07-10] MEDS: ACCU-CHEK COMFORT CURVE STRIP VI SCH ×4 (00:31→18:34)
[2018-07-10] MEDS: InsuLIN REG 1unit/0.01ml Soln (100units/ml) SC SCH ×4 (00:34→18:39)
[2018-07-10] MEDS: cloNIDine HCL 0.1 MG TAB PO PRN (01:11)
[2018-07-10 04:19] LABS: Basophils # (auto) 0.1 uL; Basophils % (auto) 0.5 % (0.0-2.0); Eosinophils # (auto) 0 uL; Eosinophils % (auto) 0.4 % (0.0-7.0); Hematocrit 32.5 % (36.0-46.0); Hemoglobin 10.5 g/dL (12.2-16.2); Lymphocytes # (auto) 0.7 uL; Lymphocytes % (auto) 6.3 % (10.0-50.0); Mean Corpuscular Hemoglobin 28.1 pg (28.0-32.0); Mean Corpuscular Hgb Conc. 32.3 g/dL (32.0-36.0); Mean Corpuscular Volume 86.8 fL (80.0-100.0); Monocytes # (auto) 0.3 uL; Monocytes % (auto) 3.1 % (0.0-12.0); Neutrophils # (auto) 9.9 uL; Neutrophils % (auto) 89.7 % (37.0-80.0); Nucleated Red Blood Cells % 0.1 %; Platelet Count (auto) 297 10^3/uL (140-450); Red Blood Cells 3.75 10^6/uL (4.0-5.20); Red Cell Distribution Width 17.3 % (11.8-14.3)
[2018-07-10 04:32] LABS: Albumin 2.9 g/dL (3.4-5.0); Calcium 9.5 mg/dL (8.5-10.1); Potassium 5.4 mmol/L (3.5-5.1)
[2018-07-10 04:36] LABS: BUN/Creatinine Ratio 11.2
[2018-07-10 05:03] LABS: Bilirubin, Total 0.3 mg/dL (0.2-1.0); Total Protein 7.6 g/dL (6.4-8.2)
[2018-07-10 05:17] LABS: Phosphorus 8.2 mg/dL (2.5-4.90)
[2018-07-10] MEDS: NYSTATIN (MOUTH-THROAT) 500,000 UNITS/5 ML SUSP MT SCH ×4 (05:56→21:33)
[2018-07-10] MEDS: CALCIUM ACETATE 667 MG CAP NG SCH ×3 (05:56→21:33)
[2018-07-10] MEDS ORDERED: SODIUM CHLORIDE 0.9% 1,000 ML IV ONE ×2 (06:00)
[2018-07-10] MEDS: SEVELAMER 800 MG TAB PO SCH ×3 (07:41→18:00)
[2018-07-10] MEDS: Pro-Stat SF 30ml Vanilla GT SCH ×2 (07:41→18:39)
[2018-07-10] MEDS: cefTRIAXone 1GM/50ML D5W 50 ML IV SCH (09:00)
[2018-07-10] MEDS: hydrALAZINE HCL 10 MG TAB PO SCH (09:09)
[2018-07-10] MEDS: amLODIPine BESYLATE 5 MG TAB PO SCH (09:40)
[2018-07-10] MEDS ORDERED: ENALAPRIL MALEATE 10 MG TAB PO SCH (10:00)
[2018-07-10] MEDS: DEXAMETHASONE SOD PHOS 4 MG/1ML SDV INJ IV SCH (10:05)
[2018-07-10] MEDS: AZITHROMYCIN 500MG/ 250ML 250 ML IV SCH (10:05)
[2018-07-10] MEDS: PANTOPRAZOLE 40 MG/10 ML VIAL IV SCH (10:05)
[2018-07-10] MEDS ORDERED: LORazepam 2MG/ML-1ML VIAL IV PRN (10:45)
[2018-07-10] MEDS ORDERED: PANTOPRAZOLE 40 MG TAB PO ONE (10:45)
[2018-07-10] MEDS ORDERED: EPOETIN ALFA 2,000 UNIT/1 ML VIAL IV ONE (12:00)
[2018-07-10] MEDS ORDERED: SODIUM CHL 0.9% 1000 ML BAG XX ONE (12:00)
[2018-07-10] MEDS ORDERED: EPOETIN ALFA 3,000 UNIT/1 ML VIAL IV ONE (12:00)
[2018-07-10] MEDS ORDERED: DEXAMETHASONE 4 MG TAB PO SCH (22:00)
[2018-07-11] MEDS ORDERED: PANTOPRAZOLE 40 MG TAB PO SCH (10:00)
== END 2018-07-10 22:00 | disposition short-term general hospital (02) | DRG 130 ==
LOC: ER 05:31 → EDBD 05:31 → OVERFLOW 08:47 → ICU WEST 12:42
PROVIDERS: ADMIT Internal Medicine; ATTEND Internal Medicine
PROC: 5A1955Z Respiratory Ventilation, Greater than 96 Consecutive Hours (ICD-10-PCS; principal; 2018-06-22)
PROC: 0BH18EZ Insertion of Endotracheal Airway into Trachea, Via Natural or Artificial Opening Endoscopic (ICD-10-PCS; 2018-06-22)
PROC: 05HY33Z Insertion of Infusion Device into Upper Vein, Percutaneous Approach (ICD-10-PCS; 2018-06-22)
PROC: 5A1D70Z Performance of Urinary Filtration, Intermittent, Less than 6 Hours Per Day (ICD-10-PCS; 2018-06-22)
PROC: 5A1D70Z Performance of Urinary Filtration, Intermittent, Less than 6 Hours Per Day (ICD-10-PCS; 2018-06-25)
PROC: 5A1D70Z Performance of Urinary Filtration, Intermittent, Less than 6 Hours Per Day (ICD-10-PCS; 2018-06-27)
PROC: 5A1D70Z Performance of Urinary Filtration, Intermittent, Less than 6 Hours Per Day (ICD-10-PCS; 2018-06-29)
PROC: 0BH18EZ Insertion of Endotracheal Airway into Trachea, Via Natural or Artificial Opening Endoscopic (ICD-10-PCS; 2018-06-30)
PROC: 30233N1 Transfusion of Nonautologous Red Blood Cells into Peripheral Vein, Percutaneous Approach (ICD-10-PCS; 2018-07-02)
PROC: 5A1D70Z Performance of Urinary Filtration, Intermittent, Less than 6 Hours Per Day (ICD-10-PCS; 2018-07-02)
PROC: 5A1D70Z Performance of Urinary Filtration, Intermittent, Less than 6 Hours Per Day (ICD-10-PCS; 2018-07-04)
PROC: 5A1D70Z Performance of Urinary Filtration, Intermittent, Less than 6 Hours Per Day (ICD-10-PCS; 2018-07-06)
PROC: 5A1D70Z Performance of Urinary Filtration, Intermittent, Less than 6 Hours Per Day (ICD-10-PCS; 2018-07-08)
PROC: 5A1D70Z Performance of Urinary Filtration, Intermittent, Less than 6 Hours Per Day (ICD-10-PCS; 2018-07-10)
DX: J96.01 Acute respiratory failure with hypoxia (principal); G92 Toxic encephalopathy; E87.4 Mixed disorder of acid-base balance; E44.0 Moderate protein-calorie malnutrition; I13.2 Hypertensive heart and chronic kidney disease with heart failure and with stage 5 chronic kidney disease, or end stage renal disease; B37.0 Candidal stomatitis; I67.4 Hypertensive encephalopathy; J18.9 Pneumonia, unspecified organism; N18.6 End stage renal disease; I50.43 Acute on chronic combined systolic (congestive) and diastolic (congestive) heart failure; N25.81 Secondary hyperparathyroidism of renal origin; I16.1 Hypertensive emergency; E87.5 Hyperkalemia; Z99.2 Dependence on renal dialysis; D63.8 Anemia in other chronic diseases classified elsewhere; E83.39 Other disorders of phosphorus metabolism; Z90.49 Acquired absence of other specified parts of digestive tract; E11.22 Type 2 diabetes mellitus with diabetic chronic kidney disease; E11.65 Type 2 diabetes mellitus with hyperglycemia; R06.1 Stridor; Z68.25 Body mass index [BMI] 25.0-25.9, adult
CPT/HCPCS: 31500; 36415; 36556; 36600; 70450; 71045; 80048; 80053; 82306; 82805; 82962; 83036; 83540; 83550; 83735; 83880; 83970; 84100; 84132; 84443; 84484; 85025; 85379; 85610; 85730; 86850; 86900; 86901; 86920; 87070; 87081; 87205; 90935; 92610; 93005; 93306; 94002; 94003; 94640; 95819; 96374; 96375; 99291; A4565; A6257; C9113; G0378; J0330; J0610; J0696; J0885; J1100; J1642; J1815; J2250; J2704; J3490; J7060; Q4081